=== PATIENT | female | born 1955 | race Caucasian/White ===

== ENCOUNTER → 2023-11-24 13:20 | Outpatient (REF) | payer MEDICARE, OTHER, SELFPAY | LOC: WDC 13:20 | PROVIDERS: ATTENDING PHYSICIAN Physician Assistant Medical | DX: Z12.31 Encounter for screening mammogram for malignant neoplasm of breast (principal) | CPT/HCPCS: 77063; 77067 ==

== ENCOUNTER → 2024-10-02 11:00 | Outpatient (REF) | payer MEDICARE, OTHER, SELFPAY | LOC: RAD 11:00 | PROVIDERS: ATTENDING PHYSICIAN Family Medicine | DX: M81.0 Age-related osteoporosis without current pathological fracture (principal); Z78.0 Asymptomatic menopausal state | CPT/HCPCS: 77080 ==

== ENCOUNTER 2024-11-26 06:15 | Day surgery (SDC) | payer MEDICARE, OTHER, SELFPAY | END 2024-11-26 09:45 | disposition home or self-care (01) | LOC: GI 06:15 | PROVIDERS: ATTENDING PHYSICIAN Internal Medicine Gastroenterology; FAMILY PHYSICIAN Family Medicine | DX: Z12.11 Encounter for screening for malignant neoplasm of colon (principal); R19.7 Diarrhea, unspecified | CPT/HCPCS: 45380; 88305 ==

== ENCOUNTER → 2024-11-28 14:33 | Outpatient (REF) | payer MEDICARE, OTHER, SELFPAY | LOC: WDC 14:33 | PROVIDERS: ATTENDING PHYSICIAN Family Medicine | DX: Z12.31 Encounter for screening mammogram for malignant neoplasm of breast (principal) | CPT/HCPCS: 77063; 77067 ==